=== PATIENT | female | born 1950 | race Caucasian/White ===

== ENCOUNTER 2016-11-13 14:36 | Inpatient (IN) | payer MEDICARE, BC ==
[2016-11-13] MEDS ORDERED: ASPIRIN 81 MG CHEW PO STA (14:55)
[2016-11-13] MEDS ORDERED: NITROGLYCERIN OINT 1 INCH/GM PACKET TOPICAL STA ×2 (14:55→21:23)
--- NOTE | 2016-11-13 15:07 | ED ---
General Adult HPI - General Chief complaint: Recheck/Abnormal Lab/Rx Stated complaint: abn EKG Time Seen by Provider: 11/13/16 14:45 Source: patient, RN notes reviewed Mode of arrival: EMS Limitations: no limitations - History of Present Illness Initial comments: This is a 66-year-old female who has a past medical history significant for hypertension. Patient was having surgery on her nasal septum. Patient had an EKG done after surgery showed some ST segment depression so the anesthesiologist wanted the patient sent to the emergency department. Patient states she's never had any symptoms she denies any chest pain palpitations difficulty breathing or shortness of breath. Patient denies any nausea. Patient denies abdominal pain patient denies any recent fever chills or cough. Patient denies headache patient denies lightheadedness dizziness or near syncopal episode. Patient states he only problem she is having is a little pain secondary to surgery. Patient denies any back pain. - Related Data Allergies Allergy/AdvReac Type Severity Reaction Status Date / Time rofecoxib [From Vioxx] Allergy Unknown Verified 11/13/16 17:35 sumatriptan [From Imitrex] Allergy Unknown Verified 11/13/16 17:35 Review of Systems ROS Statement: Those systems with pertinent positive or pertinent negative responses have been documented in the HPI. ROS Other: All systems not noted in ROS Statement are negative. Past Medical History Past Medical History: Hypertension Additional Past Medical History / Comment(s): migraines History of Any Multi-Drug Resistant Organisms: None Reported Past Surgical History: Hysterectomy Additional Past Surgical History / Comment(s): nasel surg Past Psychological History: No Psychological Hx Reported Smoking Status: Former smoker Past Alcohol Use History: None Reported Past Drug Use History: None Reported General Exam - General Exam Comments Initial Comments: GENERAL: Patient is well-developed and well-nourished. Patient is nontoxic and well- hydrated and is in mild distress. ENT: Neck is soft and supple. No significant lymphadenopathy is noted. Oropharynx is clear. Moist mucous membranes. Neck has full range of motion without eliciting any pain. Patient has a bandage over her nose. EYES: The sclera were anicteric and conjunctiva were pink and moist. Extraocular movements were intact and pupils were equal round and reactive to light. Eyelids were unremarkable. PULMONARY: Unlabored respirations. Good breath sounds bilaterally. No audible rales rhonchi or wheezing was noted. CARDIOVASCULAR: There is a regular rate and rhythm without any murmurs gallops or rubs. ABDOMEN: Soft and nontender with normal bowel sounds. No palpable organomegaly was noted. There is no palpable pulsatile mass. SKIN: Skin is clear with no lesions or rashes and otherwise unremarkable. NEUROLOGIC: Patient is alert and oriented x3. Cranial nerves II through XII are grossly intact. Motor and sensory are also intact. Normal speech, volume and content. Symmetrical smile. MUSCULOSKELETAL: Normal extremities with adequate strength and full range of motion. No lower extremity swelling or edema. No calf tenderness. LYMPHATICS: No significant lymphadenopathy is noted PSYCHIATRIC: Normal psychiatric evaluation. Limitations: no limitations Course Vital Signs 11/13/16 11/13/16 11/13/16 14:50 15:33 17:46 Temperature 97.4 F L Pulse Rate 74 75 72 Respiratory 18 18 18 Rate Blood Pressure 145/72 145/73 141/74 O2 Sat by Pulse 100 100 99 Oximetry Medical Decision Making - Medical Decision Making EKG shows normal sinus rhythm at 70 bpm. It was 164 Jose A is 102 QT interval 444 QTC is 506. Patient's EKG shows T-wave inversions in leads V4 through V6 as well as in lead 1. I compared the EKG that was done at the surgical center patient had ST segment depression in leads V2 through V6 as well as leads 1 and 2 aVL and aVF Patient has significant EKG changes on the post surgery EKG however EKG here was improved but still did show some ST segment depression as well as some T- wave inversions patient remained asymptomatic but because of these concerns I heparinized the patient. Cardiology came down and saw the patient I admitted the patient and wrote orders - Lab Data Result diagrams: 11/13/16 15:28 11/13/16 15:28 Lab Results 11/13/16 11/13/16 11/13/16 Range/Units 15:28 15:28 15:28 WBC 11.5 H (3.8-10.6) k/uL RBC 4.44 (3.80-5.40) m/uL Hgb 13.5 (11.4-16.0) gm/dL Hct 42.9 (34.0-46.0) % MCV 96.6 (80.0-100.0) fL MCH 30.3 (25.0-35.0) pg MCHC 31.3 (31.0-37.0) g/dL RDW 12.8 (11.5-15.5) % Plt Count 278 (150-450) k/uL Neutrophils % 86 % Lymphocytes % 11 % Monocytes % 2 % Eosinophils % 1 % Basophils % 0 % Neutrophils # 9.9 H (1.3-7.7) k/uL Lymphocytes # 1.2 (1.0-4.8) k/uL Monocytes # 0.3 (0-1.0) k/uL Eosinophils # 0.1 (0-0.7) k/uL Basophils # 0.0 (0-0.2) k/uL PT (9.0-12.0) sec INR (<1.1) APTT (22.0-30.0) sec Sodium 140 (137-145) mmol/L Potassium 3.5 (3.5-5.1) mmol/L Chloride 101 (98-107) mmol/L Carbon Dioxide 28 (22-30) mmol/L Anion Gap 11 mmol/L BUN 16 (7-17) mg/dL Creatinine 0.70 (0.52-1.04) mg/dL Est GFR (MDRD) Af Amer >60 (>60 ml/min/1.73 sqM) Est GFR (MDRD) Non-Af >60 (>60 ml/min/1.73 sqM) Glucose 121 H (74-99) mg/dL Calcium 9.4 (8.4-10.2) mg/dL Magnesium 1.7 (1.6-2.3) mg/dL Total Bilirubin 0.5 (0.2-1.3) mg/dL AST 19 (14-36) U/L ALT 33 (9-52) U/L Alkaline Phosphatase 51 (38-126) U/L Total Creatine Kinase 43 (30-135) U/L CK-MB (CK-2) 1.0 (0.0-2.4) ng/mL CK-MB (CK-2) Rel Index 2.3 Troponin I <0.012 (0.000-0.034) ng/mL Total Protein 6.3 (6.3-8.2) g/dL Albumin 4.0 (3.5-5.0) g/dL 11/13/16 Range/Units 15:28 WBC (3.8-10.6) k/uL RBC (3.80-5.40) m/uL Hgb (11.4-16.0) gm/dL Hct (34.0-46.0) % MCV (80.0-100.0) fL MCH (25.0-35.0) pg MCHC (31.0-37.0) g/dL RDW (11.5-15.5) % Plt Count (150-450) k/uL Neutrophils % % Lymphocytes % % Monocytes % % Eosinophils % % Basophils % % Neutrophils # (1.3-7.7) k/uL Lymphocytes # (1.0-4.8) k/uL Monocytes # (0-1.0) k/uL Eosinophils # (0-0.7) k/uL Basophils # (0-0.2) k/uL PT 11.4 (9.0-12.0) sec INR 1.1 (<1.1) APTT 24.6 (22.0-30.0) sec Sodium (137-145) mmol/L Potassium (3.5-5.1) mmol/L Chloride (98-107) mmol/L Carbon Dioxide (22-30) mmol/L Anion Gap mmol/L BUN (7-17) mg/dL Creatinine (0.52-1.04) mg/dL Est GFR (MDRD) Af Amer (>60 ml/min/1.73 sqM) Est GFR (MDRD) Non-Af (>60 ml/min/1.73 sqM) Glucose (74-99) mg/dL Calcium (8.4-10.2) mg/dL Magnesium (1.6-2.3) mg/dL Total Bilirubin (0.2-1.3) mg/dL AST (14-36) U/L ALT (9-52) U/L Alkaline Phosphatase (38-126) U/L Total Creatine Kinase (30-135) U/L CK-MB (CK-2) (0.0-2.4) ng/mL CK-MB (CK-2) Rel Index Troponin I (0.000-0.034) ng/mL Total Protein (6.3-8.2) g/dL Albumin (3.5-5.0) g/dL Critical Care Time Critical Care Time: Yes Total Critical Care Time: 35 Disposition Clinical Impression: Coronary syndrome, acute Disposition: ADMITTED IP TO THIS HOSP Referrals: Shlomo Blanton MD [Primary Care Provider] - 1-2 days Time of Disposition: 18:33
[2016-11-13 15:37] LABS: Basophils % (A) 0 %; CH 31.7; Eosinophils # (A) 0.1 k/uL (0-0.7); Eosinophils % (A) 1 %; HCT 42.9 % (34.0-46.0); HDW 2.32; HGB 13.5 gm/dL (11.4-16.0); Luc # (Auto) 0.05; Luc % (Auto) 0; Lymphocytes # (A) 1.2 k/uL (1.0-4.8); Lymphocytes % (A) 11 %; MCH 30.3 pg (25.0-35.0); MCHC 31.3 g/dL (31.0-37.0); MCV 96.6 fL (80.0-100.0); Mean Platelet Volume 7.2; Monocytes # (A) 0.3 k/uL (0-1.0); Monocytes % (A) 2 %; Neutrophils # (A) 9.9 k/uL (1.3-7.7); Neutrophils % (A) 86 %; RBC 4.44 m/uL (3.80-5.40); RDW 12.8 % (11.5-15.5); WBC 11.5 k/uL (3.8-10.6); WBC (Perox) 12.01
[2016-11-13 15:44] LABS: INR 1.1 (<1.1); Partial Thromboplastin Time 24.6 sec (22.0-30.0); Prothrombin Time 11.4 sec (9.0-12.0)
[2016-11-13 15:51] LABS: ALT 33 U/L (9-52); AST 19 U/L (14-36); Alkaline Phosphatase 51 U/L (38-126); Anion Gap 11 mmol/L; Blood Urea Nitrogen 16 mg/dL (7-17); Calcium 9.4 mg/dL (8.4-10.2); Carbon Dioxide 28 mmol/L (22-30); Chloride 101 mmol/L (98-107); Creatine Kinase 43 U/L (30-135); Glucose 121 mg/dL (74-99); Magnesium 1.7 mg/dL (1.6-2.3); Non-African American GFR(MDRD) >60 (>60 ml/min/1.73 sqM); Potassium 3.5 mmol/L (3.5-5.1); Sodium 140 mmol/L (137-145); Total Bilirubin 0.5 mg/dL (0.2-1.3); Total Protein 6.3 g/dL (6.3-8.2)
[2016-11-13 16:04] LABS: Troponin I <0.012 ng/mL (0.000-0.034)
--- NOTE | 2016-11-13 16:14 | P.CRDCN ---
History of Present Illness Consult date: 11/13/16 History of present illness: This is a 66-year-old female with history of hypertension and also smoking who had surgery for nasal septum. During the procedure patient was noted to have ST depressions in the inferolateral leads. Patient was sent to the emergency room for further evaluation. An EKG repeated in the emergency room showed less pronounced ST-T abnormalities with some T-wave changes in anterolateral leads. Patient is free of any chest pains or shortness of breath. She has some discomfort but surgery. She has no history of previous myocardial infarction or stroke. Patient gives history of having mitral valve prolapse but hasn't had any cardiac follow-up. At the time of my examination patient appears to be stable. Patient is going to be observed for the next 24 hours. We will get cardiac enzymes studies, repeat EKG and echo cardiogram tomorrow. He patient remains stable with negative enzymes, patient could be discharged home to have outpatient follow-up and workup. Review of Systems REVIEW OF SYSTEMS: CONSTITUTIONAL:. He is alert and oriented. Patient has nasal packing EYES: Denies diplopia, blurring of vision EARS, NOSE, MOUTH, THROAT: Nose is packed CARDIOVASCULAR: Denies chest pain, denies shortness of breath, denies palpitations RESPIRATORY: Denies shortness of breath, denies cough. GASTROINTESTINAL: Denies change in appetite, denies abdominal pain, denies diarrhea GENITOURINARY: Denies hematuria, denies infections. MUSKULOSKELETAL: Denies pain, denies swelling. Denies any cramps or claudication INTEGUMENTARY: Denies rash, denies eczema. NEUROLOGICAL: Denies focal weakness, or visual disturbance. Denies any dizziness or syncope PSYCHIATRIC: Denies anxiety, denies depression. HEMATOLOGIC/LYMPHATIC: Denies any bleeding, denies enlarged lymph nodes. Past Medical History Past Medical History: Hypertension Additional Past Medical History / Comment(s): migraines History of Any Multi-Drug Resistant Organisms: None Reported Past Surgical History: Hysterectomy Additional Past Surgical History / Comment(s): nasel surg Past Psychological History: No Psychological Hx Reported Smoking Status: Former smoker Past Alcohol Use History: None Reported Past Drug Use History: None Reported Physical Exam Vitals: Vital Signs Temp Pulse Resp BP Pulse Ox 11/13/16 15:33 75 18 145/73 100 11/13/16 14:50 97.4 F L 74 18 145/72 100 Intake and Output 11/13/16 11/13/16 11/13/16 06:59 14:59 22:59 Other: Weight 64.41 kg Patient Weight 11/14/16 06:59 Weight 64.41 kg GENERAL EXAM: Patient is alert and oriented and doesn't appear to be in any acute distress HEENT: Patient has nasal packing from the recent surgery CHEST: No chest wall deformity. LUNGS: Equal air entry with no crackles or wheeze. HEART: S1 and S2 normal with no audible mumurs or gallops. Regular rhythm, femorals equal on both sides.. ABDOMEN: No hepatosplenomegaly, normal bowel sounds, no guarding or rigidity. SKIN: No rashes CENTRAL NERVOUS SYSTEM: No focal deficits. EXTREMITIES: No cyanosis, clubbing or edema. Results 11/13/16 15:28 11/13/16 15:28 Cardiac Enzymes 11/13/16 11/13/16 Range/Units 15:28 15:28 AST 19 (14-36) U/L CK-MB (CK-2) 1.0 (0.0-2.4) ng/mL Troponin I <0.012 (0.000-0.034) ng/mL Coagulation 11/13/16 Range/Units 15:28 PT 11.4 (9.0-12.0) sec APTT 24.6 (22.0-30.0) sec CBC 11/13/16 Range/Units 15:28 WBC 11.5 H (3.8-10.6) k/uL RBC 4.44 (3.80-5.40) m/uL Hgb 13.5 (11.4-16.0) gm/dL Hct 42.9 (34.0-46.0) % Plt Count 278 (150-450) k/uL Comprehensive Metabolic Panel 11/13/16 Range/Units 15:28 Sodium 140 (137-145) mmol/L Potassium 3.5 (3.5-5.1) mmol/L Chloride 101 (98-107) mmol/L Carbon Dioxide 28 (22-30) mmol/L BUN 16 (7-17) mg/dL Creatinine 0.70 (0.52-1.04) mg/dL Glucose 121 H (74-99) mg/dL Calcium 9.4 (8.4-10.2) mg/dL AST 19 (14-36) U/L ALT 33 (9-52) U/L Alkaline Phosphatase 51 (38-126) U/L Total Protein 6.3 (6.3-8.2) g/dL Albumin 4.0 (3.5-5.0) g/dL Intake and Output 11/13/16 11/13/16 11/13/16 06:59 14:59 22:59 Other: Weight 64.41 kg Patient Weight 11/14/16 06:59 Weight 64.41 kg 11/13/16 15:28 11/13/16 15:28 EKG Interpretations (text) Sinus rhythm with a mild ST-T abnormalities in the inferolateral leads. Could be chronic Assessment and Plan (1) Abnormal EKG Status: Acute (2) Hypertension Status: Acute (3) History of mitral valve prolapse Status: Acute (4) Family history of ischemic heart disease Status: Acute (5) Smoking Status: Acute Plan: We'll continue to monitor her for any further EKG changes. Card enzymes studies will followed. An echocardiogram will be done tomorrow. If patient remains stable and enzymes and echo findings are normal, patient could be discharged home to have further workup as an outpatient.
[2016-11-13] MEDS: ONDANSETRON 4 MG/2 ML VIAL IVP STA (17:33)
[2016-11-13] MEDS ORDERED: HYDROmorphone 1 MG/ML 1 ML SYRINGE IVP STA ×2 (17:33→18:34)
[2016-11-13] MEDS ORDERED: NITROGLYCERIN SL TABS 0.4 MG TAB SUBLINGUAL PRN (18:36)
--- NOTE | 2016-11-13 18:56 | XR ---
EXAMINATION TYPE: XR chest 1V portable DATE OF EXAM: 11/13/2016 6:31 PM COMPARISON: EXAMINATION TYPE: XR chest 1V portable DATE OF EXAM: 11/13/2016 6:31 PM COMPARISON: NONE HISTORY: Chest pain and short of breath TECHNIQUE: Single frontal view of the chest is obtained. FINDINGS: There is no heart failure nor confluent pneumonic infiltrate. There are no hilar masses. C ostophrenic angles are clear. There are chest leads. IMPRESSION: No active cardiopulmonary disease.
[2016-11-13] MEDS: HYDROmorphone 1 MG/ML 1 ML SYRINGE IVP PRN ×2 (20:12→23:42)
[2016-11-13] MEDS ORDERED: amLODIPine 10 MG TAB PO STA (21:25)
[2016-11-13] MEDS ORDERED: ZOLPIDEM 5 MG TAB PO PRN (21:30)
[2016-11-13] MEDS: HYDROcodone/APAP 10-325MG 1 EACH TAB PO PRN (21:52)
[2016-11-13] MEDS: ALPRAZolam 0.5 MG TAB PO PRN (21:56)
[2016-11-13 22:02] LABS: Creatine Kinase MB 1.1 ng/mL (0.0-2.4); Troponin I 0.023 ng/mL (0.000-0.034)
[2016-11-13] MEDS: ESCITALOPRAM 20 MG TAB PO SCH (23:42)
[2016-11-13] MEDS: ATORVASTATIN 10 MG TAB PO SCH (23:49)
[2016-11-13] MEDS: MONTELUKAST 10 MG TAB PO SCH (23:49)
[2016-11-14] VITALS: BMI 25.1
[2016-11-14] MEDS: METOPROLOL TARTRATE 50 MG TAB PO SCH ×2 (03:47→09:26)
[2016-11-14] MEDS: HYDROCHLOROTHIAZIDE 25 MG TAB PO SCH ×2 (03:47→09:26)
[2016-11-14] MEDS: LISINOPRIL 20 MG TAB PO SCH ×2 (03:47→09:26)
[2016-11-14] MEDS: NITROGLYCERIN OINT 1 INCH/GM PACKET TOPICAL SCH (04:03)
[2016-11-14 04:05] LABS: Cholesterol 163 mg/dL (<200); HDL Cholesterol 85 mg/dL (40-60); Triglycerides 59 mg/dL (<150)
[2016-11-14 04:41] LABS: Creatine Kinase MB 0.8 ng/mL (0.0-2.4)
[2016-11-14 04:46] LABS: Troponin I 0.04 ng/mL (0.000-0.034)
[2016-11-14] MEDS: ONDANSETRON 4 MG/2 ML VIAL IVP STA (04:53)
[2016-11-14] MEDS: HYDROmorphone 1 MG/ML 1 ML SYRINGE IVP PRN ×2 (04:54→14:23)
--- NOTE | 2016-11-14 06:59 | P.GSCN ---
History of Present Illness Consult date: 11/14/16 Reason for Consult: Re-evaluation surgically Requesting physician: Dillon Magdaleno History of present illness: This is a very pleasant 66-year-old white female who underwent sinonasal surgery yesterday at the [facility]. Surgery went exceptionally well but during surgery she was hypertensive and was treated appropriately. In recovery her blood pressure went up to 180 systolic and an EKG was performed showing some inferior lead ST segment depression. It was felt that she be transferred and evaluated for a possible cardiac event. She had no chest pain or other cardiac symptoms. Her blood pressure has been a challenge as of yesterday afternoon and with her elevated hypertension she had some bleeding from her nose. I did: Nitroglycerin patch and that dropped her blood pressure quite nicely and as soon as her systolic dropped under 150 her bleeding stopped. The goal for her blood pressure is to be under 150/90. She stable this morning tells me she is doing well and has no cardiac symptoms. Her drainage from her nose has ceased. Review of Systems - Constitutional Reports as per HPI - EENT Ears, nose, mouth and throat: Reports as per HPI - Cardiovascular Reports as per HPI - Gastrointestinal Reports as per HPI - Genitourinary Genitourinary: Reports as per HPI Menstruation: Reports as per HPI - Musculoskeletal Reports as per HPI - Integumentary Reports as per HPI Past Medical History Past Medical History: Hypertension, Mitral Valve Prolapse (MVP) Additional Past Medical History / Comment(s): migraines - not for many years History of Any Multi-Drug Resistant Organisms: None Reported Past Surgical History: Hysterectomy, Tonsillectomy Additional Past Surgical History / Comment(s): nasal surg, rt oophrectomy, rt thumb/wrist surg Past Psychological History: No Psychological Hx Reported Smoking Status: Former smoker Past Alcohol Use History: None Reported Past Drug Use History: None Reported Medications and Allergies Home Medications Medication Instructions Recorded Confirmed Type ALPRAZolam [Xanax] 0.5 mg PO TID PRN 11/13/16 11/13/16 History Albuterol Sulfate [Proair Hfa] 2 puff INHALATION RT-Q4H PRN 11/13/16 11/13/16 History Escitalopram Oxalate [Lexapro] 20 mg PO DAILY 11/13/16 11/13/16 History Fosinopril Sodium [Monopril] 20 mg PO BID 11/13/16 11/13/16 History HYDROcodone/APAP 10-325MG [[place] 1 tab PO Q4HR PRN 11/13/16 11/13/16 History 10-325] Hydrochlorothiazide [Hydrodiuril] 25 mg PO BID 11/13/16 11/13/16 History Metoprolol Tartrate [Lopressor] 50 mg PO BID 11/13/16 11/13/16 History Montelukast Sodium [Singulair] 10 mg PO HS 11/13/16 11/13/16 History Simvastatin [Zocor] 20 mg PO HS 11/13/16 11/13/16 History Zolpidem Tartrate [Ambien Cr] 12.5 mg PO HS PRN 11/13/16 11/13/16 History Allergies Allergy/AdvReac Type Severity Reaction Status Date / Time adhesive tape Allergy Rash/Hives Verified 11/13/16 19:05 rofecoxib [From Vioxx] Allergy Swelling Verified 11/13/16 19:00 sumatriptan [From Imitrex] AdvReac Made Verified 11/13/16 19:00 Migraine Worse Surgical - Exam Osteopathic Statement: *. No significant issues noted on an osteopathic structural exam other than those noted in the History and Physical/Consult. Vital Signs Temp Pulse Resp BP Pulse Ox 97.4 F L 74 18 145/72 100 11/13/16 14:50 11/13/16 14:50 11/13/16 14:50 11/13/16 14:50 11/13/16 14:50 - General well developed, well nourished, no distress, moderate distress - Eyes PERRL, normal ocular movement - ENT Hasn't was felt the face is symmetric. Ears are well-formed canals are clear. Nose shows intranasal splints in place with a drip pad in place no bleeding is noted. Mouth and throat no bleeding is noted no oral lesions are seen. Neck trachea midline thyroid is not enlarged. normal pinna, normal nares - Neck no masses - Respiratory normal expansion - Integumentary no rash, no growths - Neurologic normal coordination, normal sensation - Psychiatric oriented to time, oriented to person, oriented to place, speech is normal, memory intact Results - Labs 11/13/16 15:28 11/13/16 15:28 Abnormal Lab Results - Last 24 Hours (Table) 11/14/16 11/14/16 Range/Units 03:26 03:26 Troponin I 0.040 H* (0.000-0.034) ng/mL HDL Cholesterol 85 H (40-60) mg/dL Diabetes panel 11/14/16 Range/Units 03:26 Triglycerides 59 (<150) mg/dL HDL Cholesterol 85 H (40-60) mg/dL Assessment and Plan Plan: The goal for this patient's blood pressure to prevent postoperative bleeding is to be under 150/90. Currently she has an excellent blood pressure. Awaiting cardiac clearance to see if she can be sent home. Postoperative instructions have been given to the patient. She did relate irrigation to her nose to keep her nose open. I've given her [place] for pain. I will prescribe Percocets in case the pain is greater than expected. Patient has a blood pressure monitor and she is to monitor her blood pressure closely. Again her goal is to be under 150/90. After discharge on outpatient basis she should see her family physician for a reevaluation. Patient is to call me if any problems should arise in the interim. Time with Patient: Greater than 30
[2016-11-14] MEDS: ASPIRIN 325 MG TAB PO SCH ×2 (09:26→09:27)
[2016-11-14] MEDS: ESCITALOPRAM 20 MG TAB PO SCH (09:26)
[2016-11-14] MEDS: HYDROcodone/APAP 10-325MG 1 EACH TAB PO PRN ×3 (09:32→19:50)
[2016-11-14] MEDS: ISOSORBIDE MONONITRATE ER 30 MG TAB.ER.24H PO SCH (10:45)
--- NOTE | 2016-11-14 15:04 | ECHOF ---
Referral Reason:Chest pain and cardiomyopathy MEASUREMENTS -------- HEIGHT: 160.0 cm WEIGHT: 64.0 kg BP: 97/47 RVIDd: 2.9 cm (< 3.3) IVSd: 1.2 cm (0.6 - 1.1) LVIDd: 3.7 cm (3.9 - 5.3) LVPWd: 1.2 cm (0.6 - 1.1) IVSs: 1.5 cm LVIDs: 2.4 cm LVPWs: 1.5 cm LA Diam: 3.5 cm (2.7 - 3.8) LAESV Index (A-L): 32.55 ml/m Ao Diam: 2.9 cm (2.0 - 3.7) AV Cusp: 1.8 cm (1.5 - 2.6) MV EXCURSION: 10.716 mm (> 18.000) MV EF SLOPE: 59 mm/s (70 - 150) EPSS: 0.2 cm MV E Sohail: 0.81 m/s MV DecT: 242 ms MV A Sohail: 0.85 m/s MV E/A Ratio: 0.96 FINDINGS -------- Sinus rhythm. This was a technically adequate study. The left ventricular size is normal. There is borderline concentric left ventricular hypertrophy. Overall left ventricular systolic function is normal with, an EF between 55 - 60 %. The right ventricle is normal in size and function. LA is midly dilated 29-33ml/m2. The right atrium is normal in size. The aortic valve is trileaflet and appears structurally normal. Mild mitral annular calcification present. The tricuspid valve appears structurally normal. No regurgitation noted The pulmonic valve was not well visualized. The aortic root size is normal. Normal inferior vena cava with normal inspiratory collapse consistent with estimated right atrial pressure of 5 mmHg. There is no pericardial effusion. CONCLUSIONS -------- 1. Sinus rhythm. 2. The aortic root size is normal. 3. Normal inferior vena cava with normal inspiratory collapse consistent with estimated right atrial pressure of 5 mmHg. 4. There is no pericardial effusion. 5. This was a technically adequate study. 6. There is borderline concentric left ventricular hypertrophy. 7. Overall left ventricular systolic function is normal with, an EF between 55 - 60 %. 8. LA is midly dilated 29-33ml/m2. 9. The aortic valve is trileaflet and appears structurally normal. 10. Mild mitral annular calcification present. 11. No regurgitation noted 12. The pulmonic valve was not well visualized. APPLIANCE COUNSELOR: Barb Van RDCS
--- NOTE | 2016-11-14 16:37 | PN ---
Mrs. Wheeler is a 66-year-old female with a history of hypertension, who underwent surgery for nasal septum and was found to have ST segment depression, was referred to the emergency room and subsequently admitted. She is feeling well this morning. She has no chest pain. Her breathing has been stable. She denies any dizziness, palpitation. She denies any nausea. She has the nasal packing as noted. She continues to be at this time on aspirin once a day, Lipitor 20 mg daily, lisinopril 20 mg twice a day, metoprolol tartrate 50 mg twice a day, Singulair, nitro paste. Of note, the patient has a history of hypertension and hyperlipidemia as an outpatient. PHYSICAL EXAMINATION: Blood pressure running in the 120s with a heart in the 70s. HEAD: Normocephalic, packing in place. LUNGS: Clear to auscultation. HEART: Regular rate rhythm. S1, S2, no S3, no rub. ABDOMEN: Soft, nontender. EXTREMITIES: No edema. Lab data revealed cholesterol 163, LDL of 66, troponin 0.04, BUN and creatinine 16 and 0.7. Hemoglobin of 13.5. Her EKG today revealed a sinus mechanism, normal axis and intervals with no acute changes. She had mild ST segment depression yesterday that resolved. IMPRESSION: 1. Probable non- ST segment elevation myocardial infarction with mild EKG changes that resolved. 2. Status post nasal sinus surgery done yesterday. 3. Hypertension. 4. Hyperlipidemia. RECOMMENDATIONS: From the cardiac standpoint, I will review her echocardiogram. Patient will need to be admitted to the hospital. Will obtain a subsequent troponin to see the trend. I would favor not proceeding with emergent cardiac catheterization. Because of the recent surgery and the possibility that may have some worsening bleeding but if she has any further symptoms or further elevation of the troponin then that needs to be done. I have discussed with her those findings.
[2016-11-14] MEDS: ATORVASTATIN 10 MG TAB PO SCH (19:50)
[2016-11-14] MEDS: MONTELUKAST 10 MG TAB PO SCH (19:50)
[2016-11-14] MEDS: ALPRAZolam 0.5 MG TAB PO PRN (19:50)
[2016-11-15] MEDS: HYDROcodone/APAP 10-325MG 1 EACH TAB PO PRN ×4 (03:51→20:44)
[2016-11-15] MEDS: HYDROCHLOROTHIAZIDE 25 MG TAB PO SCH ×2 (04:49→08:08)
[2016-11-15] MEDS: METOPROLOL TARTRATE 50 MG TAB PO SCH ×3 (04:49→20:44)
[2016-11-15] MEDS: LISINOPRIL 20 MG TAB PO SCH ×3 (04:49→20:44)
[2016-11-15 07:06] LABS: Anion Gap 5 mmol/L; Blood Urea Nitrogen 22 mg/dL (7-17); Calcium 9.2 mg/dL (8.4-10.2); Carbon Dioxide 32 mmol/L (22-30); Chloride 101 mmol/L (98-107); Glucose 106 mg/dL (74-99); Non-African American GFR(MDRD) >60 (>60 ml/min/1.73 sqM); Potassium 4.4 mmol/L (3.5-5.1); Sodium 138 mmol/L (137-145)
[2016-11-15] MEDS: ISOSORBIDE MONONITRATE ER 30 MG TAB.ER.24H PO SCH (08:06)
[2016-11-15] MEDS: ASPIRIN 325 MG TAB PO SCH (08:06)
[2016-11-15] MEDS: ESCITALOPRAM 20 MG TAB PO SCH (08:08)
[2016-11-15] MEDS: HYDROmorphone 1 MG/ML 1 ML SYRINGE IVP PRN (09:19)
[2016-11-15] MEDS ORDERED: SODIUM CHLORIDE 0.9% 500 ML IV ONE (11:39)
--- NOTE | 2016-11-15 13:11 | HP ---
DATE OF ADMISSION: 11/14/2016 CHIEF COMPLAINT: Uncontrolled hypertension. EKG changes. HISTORY OF PRESENT ILLNESS: Ms. Wheeler is a 66-year-old female with a known history of hypertension, mitral valve prolapse who underwent sinonasal surgery for polypectomy at [facility] on 11/13/2016. Postoperatively patient was having uncontrolled hypertension and EKG changes with ST segment depression. The patient subsequently transferred to [facility] for further evaluation by cardiology and otherwise, the patient was having nose bleeding for which nose packing was done. Patient is being followed by cardiology and ENT at this time. Patient was given nitroglycerin patch and improvement of blood pressure. Patient also found to have a slightly elevated troponin level, possible NSTEMI currently being monitored for possible intervention if needed as per cardiology and following serial troponins levels. Otherwise, patient denied any complaints of headache, dizziness or lightheadedness. No chest pain. No short of breath. No nausea or vomiting. No fever. The patient complains of recently having epigastric symptoms at home about two weeks ago. Otherwise denied any recent illnesses. REVIEW OF SYSTEMS: CONSTITUTIONAL: No fever. No chills. RESPIRATORY: No cough or sputum production. CARDIOVASCULAR: No chest pain or short of breath. ABDOMEN: No nausea, vomiting, or abdominal pain. GENITOURINARY: Negative. ENDOCRINE: Negative. PSYCH: Negative. SKIN: Negative. All other fourteen-point review of systems negative except as above. PAST MEDICAL HISTORY: Hypertension, mitral valve prolapse. History of migraine headaches. PAST SURGICAL HISTORY: Hysterectomy, tonsillectomy, nasal surgery, right nephrectomy and right ( ) wrist surgery. SOCIAL HISTORY: The patient is a former smoker. FAMILY HISTORY: Denied any history of hypertension or diabetes mellitus in the family. Home medication include: 1. Xanax. 2. Pro-Air. 3. Lexapro. 4. Monopril. 5. [place] 10. 6. Hydrodiuril. 7. Lopressor. 8. Singulair. 9. Zocor. 10. Ambien. ALLERGIES: ADHESIVE TAPE, ( ) SUMITRIPTAN. PHYSICAL EXAMINATION: She is a 66 -year-old female lying in bed. Awake, alert, oriented, x3. The patient has nose pack in place, no active bleeding. VITALS: Blood pressure is 176/78 on admission, pulse is 68, respiration 18, temperature afebrile, pulse 97% on room air. HEENT: Atraumatic. The patient has nose pack present status post surgery, atraumatic, Neck is supple. No JVD. CVS: S1, S2 heard. No murmurs, no gallop, no rub. LUNGS: Bilateral air entry is present. No wheezing. No crackles. Nonlabored breathing. ABDOMEN: Soft, nontender. Bowel sounds present. BOAT GARNISHER: Awake, alert and oriented times three. No focal neurologic deficits. Cranial nerves grossly intact. EXTREMITIES: No edema. Pulses palpable bilaterally. No clubbing or cyanosis. PSYCHIATRIC: Cooperative. Nonsuicidal. SKIN: No rash or skin lesions. LABORATORY DATA: WBC 11.4, hemoglobin 13.5, platelets 274. INR 1.1. Sodium 140, potassium 3.5, chloride 101, bicarb is 28. BUN 16, creatinine 0.7. Troponin 0.012, 0.023 and 0.040. Chest x-ray shows no acute cardiopulmonary process. EKG shows normal sinus rhythm. ST-T wave abnormalities. IMPRESSION: 1. Elevated troponin, possible non-ST elevation myocardial infarction. 2. Uncontrolled hypertension, controlled now. 3. Hypertension. 4. Hyperlipidemia. 5. Mitral prolapse history. 6. History of migraine headache. 7. Status post nasal and sinus polypectomy done on 11/13/2016. DISCUSSION AND PLAN: 66 -year-old female with history of nasal sinus surgery yesterday was admitted to the hospital with EKG changes and elevated troponin level. Continue the serial troponins and cardiology is planning for catheterization ( ) troponin is trending up. Otherwise, the patient is chest pain free now. Continue with telemonitoring. Continue the current management. Follow-up closely. Further recommendations based on clinical course.
--- NOTE | 2016-11-15 14:17 | PN ---
Mrs. Wheeler is a 66-year-old female who presented to undergo nasal surgery. Had some EKG changes postoperatively. She is doing well at this time. She denies symptoms of chest pain. She denies any change in her breathing. She has the packing on her nose. She has no dizziness, palpitation. She continued to be on aspirin once a day, Lipitor 20 mg daily, isosorbide mononitrate 30 mg daily and Zestril 20 mg twice a day, metoprolol tartrate 50 mg twice a day. PHYSICAL EXAMINATION: Blood pressure running in the one teens to 150s with a heart in the 70s. LUNGS: Clear. HEART: Regular rate and rhythm. S1, S2, no S3, no rub. ABDOMEN: Soft, nontender. EXTREMITIES: No edema. Echocardiogram revealed a preserved left ventricular size and systolic function. Her lab data revealed a troponin of 0.03, 0.026 and 0.02. Her cholesterol is 163, LDL of 56. Her BUN and creatinine 22 and 0.8. IMPRESSION: 1. Episode of ST segment changes transient with minimal change in her troponin, resolved. Subsequent troponins are normal. Her left ventricular systolic function is normal. 2. History of hypertension. 3. Status post recent nasal sinus surgery. RECOMMENDATIONS: From the cardiac standpoint, she should be able to be discharged home today. Follow up as an outpatient with Dr. Magdaleno on her present medical regimen and depending on her progress, further recommendation will be made.
[2016-11-15] MEDS: SODIUM CHLORIDE 0.9% 1,000 ML IV SCH (14:35)
[2016-11-15] MEDS: ATORVASTATIN 10 MG TAB PO SCH (20:44)
[2016-11-15] MEDS: MONTELUKAST 10 MG TAB PO SCH (20:44)
[2016-11-15] MEDS ORDERED: RX INFO: IV CONTRAST WAS GIVEN 1 EACH MISC MISCELLANE PRN (21:40)
--- NOTE | 2016-11-15 22:29 | CT ---
EXAMINATION TYPE: CT angio head DATE OF EXAM: 11/15/2016 10:10 PM COMPARISON: NONE HISTORY: pt is 2 days post sinus surgery, c/o VILLA since surgery, R/O aneurysm CT DLP: 1319.50 mGycm Automated exposure control for dose reduction was used. TECHNIQUE: Performed with IV Contrast, patient injected with 100 mL of Visipaque 320. MIP images are created and reviewed. 3D reconstructed images are created on an independent workstati on and reviewed. FINDINGS: The noncontrast images show some cerebral cortical atrophy. There is no midline shift. There is no si gn of intracranial hemorrhage. There is arterial flow demonstrated in the anterior middle and posterior cerebral arteries. There is no mass effect. There is no evidence of aneurysm or neovascularity. There is normal contrast opacific ation of the venous sinuses. There is arterial flow in the vertebral basilar artery system. There is bilateral flow in the vertebral arteries. There is flow in both internal carotid arteries. There is extensive mucosal thickening in the paranasal sinuses. There are drains in the nasopharynx. Orbital margins are intact. IMPRESSION: NEGATIVE CT ANGIOGRAM OF THE BRAIN. SINUS MUCOSAL THICKENING WITH RECENT SURGERY.
[2016-11-16] MEDS: HYDROcodone/APAP 10-325MG 1 EACH TAB PO PRN ×4 (04:11→22:45)
[2016-11-16] MEDS: HYDROCHLOROTHIAZIDE 25 MG TAB PO SCH ×2 (04:15→08:33)
[2016-11-16] MEDS: SODIUM CHLORIDE 0.9% 1,000 ML IV SCH (04:38)
[2016-11-16] MEDS: NITROGLYCERIN OINT 1 INCH/GM PACKET TOPICAL SCH (05:58)
[2016-11-16] MEDS: ASPIRIN 325 MG TAB PO SCH (08:32)
[2016-11-16] MEDS: METOPROLOL TARTRATE 50 MG TAB PO SCH ×2 (08:33→22:42)
[2016-11-16] MEDS: ESCITALOPRAM 20 MG TAB PO SCH (08:33)
[2016-11-16] MEDS: LISINOPRIL 20 MG TAB PO SCH ×2 (08:33→22:42)
--- NOTE | 2016-11-16 08:52 | PN ---
HISTORY: This is a patient of Dr. Willie mendoza who had sinus surgery on Wednesday and had uncontrolled hypertension and some cardiac EKG changes and therefore was transferred to [facility] for cardiac work-up. She has had intermittent elevated hypertension and is still trying to have this controlled. Apparently myocardial infarction was ruled out according to her nurse. The sister called me this evening having concern about the patient having some headaches and facial pain which she realizes is not uncommon after sinus surgery with a nasal packing and splints. However, there is a strong family history of aneurysms including herself, their mother and another sister who actually had from an aneurysm. She wanted to see if brain scan could be ordered to rule out aneurysm. I spoke with her nurse regarding the patient and that she had one dose of Dilaudid this morning and one dose [place] tonight, which has controlled her headaches and facial pain for the most part. She does complain about some pressure around her eyes. She is having no nasal drainage or fever and her headache is generalized when she is having this. Her nurse explained that she is good from a cardiac standpoint, although they are still try to control her hypertension before discharging her. I did order MRI/MRA to rule out aneurysm due to the family history, although her headache and facial pain is most likely postoperative and is not uncommon after this type of surgery. With the strong family history this is reasonable to have aneurysm ruled out anyway. This will be ordered and I did order this through her nurse, Amberly and if this is clear then she would be able to be discharged when recommended by Cardiology. Note, that I was not aware of this patient until this evening when her sister called me about her. There is no operative note available though I did review her office chart.
[2016-11-16] MEDS: ISOSORBIDE MONONITRATE ER 30 MG TAB.ER.24H PO SCH (09:49)
[2016-11-16] MEDS: amLODIPine 5 MG TAB PO SCH (09:59)
--- NOTE | 2016-11-16 18:39 | PN ---
Mrs. Wheeler is a 66-year-old female who underwent nasal sinus surgery, had mild EKG changes postoperatively that resolved. She is doing well this morning. Her main complaint is headache. She had a head CT yesterday that revealed no evidence of any acute changes with no evidence of aneurysm. She is feeling slightly better. She continues to have the headache. She has no chest pain. Her breathing has been stable. No dizziness. No palpitations. She denies any nausea. She continues to be on lisinopril 20 mg daily, hydrochlorothiazide 25 mg twice a day, isosorbide mononitrate 30 mg daily, Zestril 20 mg twice a day, metoprolol tartrate 50 mg twice a day. PHYSICAL EXAMINATION: Blood pressure remains elevated times up to the 160s and 170s with a heart in the 70s. LUNGS: Clear. HEART: Regular rate and rhythm. S1, S2, no S3, no rub. ABDOMEN: Soft, nontender. EXTREMITIES: No edema. Lab data revealed BUN and creatinine 22 and 2.8. IMPRESSION: 1. Status post nasal sinus surgery. 2. Headache, improving. 3. Mild electrocardiogram changes resolved, etiology unclear. 4. History of hypertension. RECOMMENDATIONS: I will add to regimen amlodipine 5 mg daily to optimize her blood pressure control, otherwise continue the rest of medical regimen. From the cardiac standpoint. She is stable to be discharged home to be followed as an outpatient by Dr. Magdaleno to see if further cardiac work-up will be needed.
[2016-11-16] MEDS: HYDROmorphone 1 MG/ML 1 ML SYRINGE IVP PRN (18:40)
[2016-11-16 20:03] VITALS: RESP 16
[2016-11-16] MEDS: ATORVASTATIN 10 MG TAB PO SCH (22:43)
[2016-11-16] MEDS: MONTELUKAST 10 MG TAB PO SCH (22:43)
[2016-11-17] MEDS: HYDROCHLOROTHIAZIDE 25 MG TAB PO SCH ×2 (03:38→08:34)
[2016-11-17] MEDS: HYDROcodone/APAP 10-325MG 1 EACH TAB PO PRN ×3 (04:46→13:19)
[2016-11-17 07:57] VITALS: PULSE 61
[2016-11-17 08:19] LABS: Anion Gap 8 mmol/L; Blood Urea Nitrogen 13 mg/dL (7-17); Calcium 9.2 mg/dL (8.4-10.2); Carbon Dioxide 31 mmol/L (22-30); Chloride 100 mmol/L (98-107); Glucose 101 mg/dL (74-99); Non-African American GFR(MDRD) >60 (>60 ml/min/1.73 sqM); Potassium 3.8 mmol/L (3.5-5.1); Sodium 139 mmol/L (137-145)
[2016-11-17] MEDS: amLODIPine 5 MG TAB PO SCH (08:33)
[2016-11-17] MEDS: ESCITALOPRAM 20 MG TAB PO SCH (08:33)
[2016-11-17] MEDS: ASPIRIN 325 MG TAB PO SCH (08:33)
[2016-11-17 09:12] LABS: Basophils % (A) 0 %; CH 30.7; CHCM 31.9; Eosinophils # (A) 0.5 k/uL (0-0.7); Eosinophils % (A) 5 %; HCT 35.6 % (34.0-46.0); HDW 2.09; HGB 11.7 gm/dL (11.4-16.0); Luc # (Auto) 0.24; Luc % (Auto) 2; Lymphocytes % (A) 30 %; MCH 31.8 pg (25.0-35.0); MCHC 32.9 g/dL (31.0-37.0); MCV 96.7 fL (80.0-100.0); Mean Platelet Volume 6.4; Monocytes # (A) 0.9 k/uL (0-1.0); Monocytes % (A) 9 %; Neutrophils # (A) 5.4 k/uL (1.3-7.7); Neutrophils % (A) 54 %; RBC 3.68 m/uL (3.80-5.40); RDW 12.2 % (11.5-15.5); WBC (Perox) 10.86
--- NOTE | 2016-11-17 10:33 | P.PN ---
Subjective Principal diagnosis: Abnormal EKG and positive troponins This patient had a outpatient nasal surgery and she was noted to have abnormal EKGs at the end of the procedure. She was sent to the emergency room. She also had borderline troponin elevation. Patient did not have any symptoms of chest pain. Echocardiogram showed good LV function. Patient remained stable since admission here from Cardec standpoint. Patient did have some oozing from the surgery of the nose. It was felt that patient is not a candidate for intervention at this time because of ongoing bleeding from the surgical site. As patient is clinically stable she is being discharged home on medical therapy. Patient will be evaluated for coronary artery disease as an outpatient. Follow-up with Dr. Magdaleno in 1 week. Objective - Vital Signs Vital signs: Vital Signs Temp 97.9 F 11/17/16 07:56 Pulse 61 11/17/16 08:00 Resp 16 11/17/16 08:00 BP 124/63 11/17/16 07:56 Pulse Ox 96 11/17/16 07:56 Intake & Output 11/16/16 11/17/16 11/17/16 18:59 06:59 18:59 Intake Total 518 450 Balance 518 450 Intake: Oral 518 450 Other: Voiding Method Toilet Toilet Toilet # Voids 1 - Exam GENERAL EXAM: Patient is alert and oriented and doesn't appear to be in any acute distress HEENT: Normocephalic. Normal reaction of pupils, equal size, normal range of extraocular motion. No erythema or exudates in the throat. NECK: No masses, no nuchal rigidity. CHEST: No chest wall deformity. LUNGS: Equal air entry with no crackles or wheeze. HEART: S1 and S2 normal with no audible mumurs or gallops. Regular rhythm, femorals equal on both sides.. ABDOMEN: No hepatosplenomegaly, normal bowel sounds, no guarding or rigidity. SKIN: No rashes CENTRAL NERVOUS SYSTEM: No focal deficits. EXTREMITIES: No cyanosis, clubbing or edema. - Labs CBC & Chem 7: 11/17/16 07:26 11/17/16 07:26 Labs: Abnormal Lab Results - Last 24 Hours (Table) 11/17/16 11/17/16 Range/Units 07:26 07:26 RBC 3.68 L (3.80-5.40) m/uL Carbon Dioxide 31 H (22-30) mmol/L Glucose 101 H (74-99) mg/dL Assessment and Plan (1) Abnormal EKG Status: Acute (2) Hypertension Status: Acute (3) History of mitral valve prolapse Status: Acute (4) Family history of ischemic heart disease Status: Acute (5) Smoking Status: Acute Plan: Patient remains stable for the last 2-3 days from cardiac standpoint. Echocardiogram showed normal LV function. She is being discharged home. Follow -up in the office and further cardiac workup to be done as an outpatient.
[2016-11-17] MEDS: METOPROLOL TARTRATE 50 MG TAB PO SCH (10:54)
[2016-11-17] MEDS: LISINOPRIL 20 MG TAB PO SCH (10:54)
[2016-11-17 11:47] VITALS: BP 120/68; TEMP 97.8
--- NOTE | 2016-11-17 13:08 | PN ---
DATE OF SERVICE: 11/15/2016 Ms. Wheeler is a 66-year-old female with a known history of hypertension and multiple medical problems who recently underwent sinonasal surgery for polypectomy at [facility] on 11/13/2016. Postoperatively the patient had EKG changes and was sent to the hospital. Patient was going to the hospital. Serial EKGs and troponins were negative. Troponins are trending down at this time. Initial troponin was slightly elevated. Otherwise Cardiology recommended no further work-up. Patient today morning became hypotension after pain medications and blood pressure medications. Patient still complains of dizziness and headache. The patient was seen by ENT and recommended CT angiogram of the head for possibility of any aneurysm, which was negative. Otherwise patient denies any fever, chills. The patient otherwise still feels very weak and unable to ambulate without support. REVIEW OF SYSTEMS: CONSTITUTIONAL: No fever. No chills. Patient does have generalized weakness. RESPIRATORY: No cough or sputum collection. CARDIOVASCULAR: No chest pain, short of breath. ABDOMEN: No nausea, vomiting or abdominal pain. GENITOURINARY: Neg. ENDOCRINE: Negative. NEUROLOGIC: Patient does have a headache and dizziness. PSYCHIATRIC: Anxious. All other fourteen point review of systems negative except as above. CURRENT MEDICATIONS: Reviewed. PHYSICAL EXAMINATION: A 66-year-old female lying in bed comfortably, awake, alert, oriented x3, appears to be in no apparent distress. VITALS: Blood pressure is 124/58, pulse 65, respirations 18, temperature afebrile. Pulse ox is 93% on room air. HEENT: Atraumatic, normocephalic. NECK: Supple. No JVD. SOCIAL SERVICES COUNSELOR: S1, S2 heard. No murmurs, no gallop. LUNGS: Bilateral air entry is present. No wheezing, no crackles. ABDOMEN: Soft, nontender, bowel sounds present. SOCIAL SERVICES COUNSELOR: Awake, alert, oriented x3 now. Patient does have nasal pack. No active bleeding at the time. LABORATORY DATA: WBC 138, potassium 4.4, chloride 101, bicarbonate 32, BUN 22, creatinine 0.8, calcium 9.2. IMPRESSION: 1. Mildly elevated troponin level trending down at this time, unlikely acute coronary syndrome. 2. Minimal T wave inversions in the EKG. 3. Acute status nasal and sinus polypectomy done on 11/13/2016. 4. Hypotensive today in the morning. 5. Headache and dizziness. 6. Hypertension. 7. Hyperlipidemia. 8. History of mitral prolapse. 9. History of migraine headache. DISCUSSION AND PLAN: A 66-year-old female admitted to the hospital with a possible EKG changes and the troponins are negative. Cardiology recommended no further work-up. The patient underwent a CT angiogram of the head to rule out aneurysm due to headache and dizziness, which is negative. Otherwise patient will be continued on current management and encourage ambulation and p.o. intake. PT, OT has been consulted and family is requesting to be transferred to rehab.
--- NOTE | 2016-11-17 13:28 | PN ---
DATE OF SERVICE: 11/16/2016 Interval history: Ms. Wheeler is a 66 -year-old female admitted to the hospital after she was found to have EKG T-wave inversions on the EKG after she had sinonasal surgery on 11/13/2016. Otherwise, serial EKGs and troponins are negative while in the hospital. Patient was seen by cardiology and recommended no further work-up. CT head showed no aneurysm. The patient says recurrent dizziness improved now. Otherwise, the patient feels generalized weak and the patient has generalized weakness and unable to ambulate without support. Which is most likely secondary to nasal packing obstructing her vision. Otherwise, no fever. No chills. No acute overnight issues. Family requesting her to be transferred to rehabilitation and PT/OT has been consulted. Otherwise, no acute overnight issues. REVIEW OF SYSTEMS: CONSTITUTIONAL: No fever, no chills. RESPIRATORY: No cough or sputum production. CARDIOVASCULAR: No chest pain or short of breath. ABDOMEN: No nausea or vomiting or abdominal pain. GENITOURINARY: Negative. ENDOCRINE: Negative. PSYCHIATRY: Negative. SKIN: Negative. All other 14 point review of systems negative except as above. CURRENT MEDICATIONS: Reviewed. PHYSICAL EXAMINATION: A 66 -year-old female lying in bed comfortably. Awake, alert, oriented, x3, appears to be in no apparent distress. VITALS: Blood pressure is 140/74, pulse is 68, respiratory rate 18, temperature afebrile, pulse ox 92% on room air. HEENT: Atraumatic, normocephalic. Neck is supple. No JVD. CVS: S1, S2 heard. No murmurs. No gallop. No rub. LUNGS: Bilateral air entry is present. No wheezing, no crackles. ABDOMEN: Soft, nontender. Bowel sounds present. CENTRAL NERVOUS SYSTEM: Awake, alert, and oriented x3. No focal neurological deficits. Cranial nerves grossly intact. EXTREMITIES: No edema. Pulses palpable bilaterally. No clubbing or cyanosis. PSYCHIATRY: Cooperative. Nonsuicidal. SKIN: No ulcer, rash or lesions. LABORATORY DATA: Reviewed. IMPRESSION: 1. ( ) on EKG nonsignificant ( ) cardiology has seen the patient. Slightly elevated troponin on admission, trending down at this time. 2. Status post nasal and sinus polypectomy done on 11/13/2016. 3. Hypertension, controlled now. 4. Hyperlipidemia. 5. Mitral valve prolapse history. 6. History of migraine headaches. DISCUSSION AND PLAN: 66 -year-old female admitted to the hospital with ( ) EKG changes and slightly elevated troponin. Cardiology recommended no further work-up. Otherwise, the patient ( ). Troponin is negative. Repeat troponins are negative. Patient has generalized weakness and continue the PT, OT and possible transfer to rehab. senior site manager has been consulted. Family is requesting her to be transferred to rehab. Further recommendations based on clinical course.
--- NOTE | 2016-12-03 15:28 | DS ---
DATE OF ADMISSION: 11/14/2016 DATE OF DISCHARGE: 11/17/2016 DISCHARGE DIAGNOSES: 1. Abnormal EKG with slightly elevated troponin on admission. Troponins are trending down at this time. A 2-D echo was done showed normal left ventricular function and Cardiology recommended outpatient followup. 2. Status post nasal and sinus polypectomy done on 11/13/2016. No active bleeding at this time. Seen by ENT. 3. Hypertension, controlled now. 4. Hyperlipidemia. 5. History of mitral valve prolapse. 6. Family history of coronary artery disease. 7. History of migraine headaches. HOSPITAL COURSE: Ms. Wheeler is a 66-year-old female who had a sinonasal surgery on 11/13/2016, was transferred to [facility] with abnormal EKG with TA inversion in the lateral leads. Patient had a cardiac work-up done including serial EKGs and troponins. Troponins slightly elevated but not in the acute coronary artery syndrome range. The patient was seen by Cardiology and 2-D echo was done, showed a normal ejection fraction and LV function. Otherwise, patient was monitored while in the hospital. No active chest pain, short of breath. Patient was seen ENT as well and nasal pack has been removed now. Otherwise, no active bleeding now. Her blood pressures is elevated and blood pressure medications have been adjusted at this time. Currently, patient is more stable and able to ambulate. No active complaints of chest pain or shortness of breath. Patient is otherwise stable to be discharged home. Cardiology has cleared the patient as well. DISCHARGE PHYSICAL EXAMINATION: A 66-year-old female lying in the bed comfortably, awake, alert and oriented x3. Patient in no apparent distress. VITALS: Blood pressure is 120/68, pulse is 61, respirations 16, temperature afebrile, pulse ox 98% on room air. Laboratory data reviewed. Discharge physical examination done. Discharge medications include: 1. Xanax 0.5 mg p.o. t.i.d. p.r.n. for anxiety. 2. ProAir 2 puffs inhalation q.4 hourly p.r.n. for short of breath. 3. Lexapro 20 mg p.o. daily. 4. Monopril 20 mg p.o. b.i.d. 5. [place] 10 one tablet p.o. q.4 hourly p.r.n. for pain. 6. Hydrochlorothiazide 20 mg p.o. b.i.d. 7. Metoprolol 50 mg p.o. b.i.d. 8. Singulair 10 mg p.o. at bedtime. 9. Zocor 20 mg p.o. at bedtime. 10. Zolpidem 12.5 mg p.o. at bedtime p.r.n. for sleep. 11. Amlodipine 5 mg p.o. daily. Patient will be discharged home in stable condition. Activity as tolerated. Heart-healthy diet. Follow with Dr. Tapia in one week. Follow with Dr. Magdaleno and follow up with Dr. Shlomo Blanton in 3 days.
== END 2016-11-17 13:39 | disposition home or self-care (01) | DRG 305 ==
LOC: EC 14:36 → 3OBS 18:36 → OBSVTOIN 11-14 11:40
PROVIDERS: ADMIT Hospitalist; ATTEND Hospitalist
DX: I10 Essential (primary) hypertension (principal); I95.9 Hypotension, unspecified; E78.5 Hyperlipidemia, unspecified; I34.1 Nonrheumatic mitral (valve) prolapse; R04.0 Epistaxis; G43.909 Migraine, unspecified, not intractable, without status migrainosus; R74.8 Abnormal levels of other serum enzymes; R94.31 Abnormal electrocardiogram [ECG] [EKG]; R51 Headache; Z87.891 Personal history of nicotine dependence; Z79.899 Other long term (current) drug therapy; Z88.8 Allergy status to other drugs, medicaments and biological substances
CPT/HCPCS: 36415; 70496; 71010; 80048; 80053; 80061; 82550; 82553; 83735; 84484; 85025; 85610; 85730; 93005; 93306; 94760; 96374; 96375; 96376; 99291

== ENCOUNTER 2016-12-29 07:18 | Day surgery (SDC) | payer MEDICARE, BC ==
[2016-12-25 15:56] VITALS: BMI 27.3
[~2016-12-29 07:18] MED LIST: SODIUM CHLORIDE 0.9% 1,000 ML in EMPTY BAG 1 BAG IV ONE
[2016-12-29] MEDS ORDERED: ALPRAZolam 0.25 MG TAB PO ONE (07:40)
[2016-12-29] MEDS ORDERED: ALPRAZolam 0.25 MG TAB ONE (07:40)
[2016-12-29] MEDS ORDERED: SODIUM CHLORIDE 0.9% 1,000 ML IV ONE (07:45)
[2016-12-29 08:03] LABS: Basophils % (A) 1 %; CH 30.5; CHCM 32.5; Eosinophils # (A) 0.2 k/uL (0-0.7); Eosinophils % (A) 3 %; HCT 39.2 % (34.0-46.0); HDW 2.47; HGB 12.6 gm/dL (11.4-16.0); Luc # (Auto) 0.21; Luc % (Auto) 3; Lymphocytes % (A) 30 %; MCH 30.3 pg (25.0-35.0); MCHC 32.2 g/dL (31.0-37.0); MCV 94.2 fL (80.0-100.0); Mean Platelet Volume 6.8; Monocytes # (A) 0.6 k/uL (0-1.0); Monocytes % (A) 9 %; Neutrophils # (A) 3.7 k/uL (1.3-7.7); Neutrophils % (A) 55 %; RBC 4.16 m/uL (3.80-5.40); RDW 12.2 % (11.5-15.5); WBC 6.8 k/uL (3.8-10.6); WBC (Perox) 7.64
[2016-12-29] MEDS ORDERED: IV FLUID CONTINUATION 1,000 ML IV ONE (08:04)
[2016-12-29] MEDS ORDERED: fentaNYL (PF) 50 MCG/ML 2 ML AMP ONE (08:13)
[2016-12-29] MEDS ORDERED: MIDAZOLAM 2 MG/2 ML VIAL ONE (08:13)
[2016-12-29 08:23] LABS: Anion Gap 8 mmol/L; Calcium 9.5 mg/dL (8.4-10.2); Carbon Dioxide 31 mmol/L (22-30); Chloride 102 mmol/L (98-107); Glucose 89 mg/dL (74-99); Non-African American GFR(MDRD) >60 (>60 ml/min/1.73 sqM); Sodium 141 mmol/L (137-145)
[2016-12-29 08:29] LABS: Blood Urea Nitrogen 20 mg/dL (7-17); Potassium 4.2 mmol/L (3.5-5.1)
[2016-12-29] MEDS ORDERED: MIDAZOLAM 2 MG/2 ML VIAL IV ONE (08:30)
[2016-12-29] MEDS ORDERED: fentaNYL (PF) 50 MCG/ML 2 ML AMP IV ONE (08:31)
[2016-12-29] MEDS ORDERED: LIDOCAINE 2% INJ 20 MG/ML SQ ONE (08:33)
[2016-12-29] MEDS ORDERED: LABETALOL SYRINGE 5 MG/ML ONE (08:36)
[2016-12-29] MEDS ORDERED: LABETALOL 5 MG/ML VIAL MDV IV ONE (08:39)
[2016-12-29] MEDS ORDERED: NITROGLYCERIN OINT 1 INCH/GM PACKET TOPICAL ONE ×2 (08:45→08:48)
[2016-12-29] MEDS ORDERED: IOHEXOL 350 MG/ML 100 ML BOTTLE INJ ONE (08:49)
[2016-12-29 08:50] VITALS: RESP 18
[2016-12-29] MEDS ORDERED: amLODIPine 5 MG TAB ONE (08:52)
[2016-12-29] MEDS ORDERED: RX INFO: IV CONTRAST WAS GIVEN 1 EACH MISC MISCELLANE PRN (08:56)
[2016-12-29] MEDS ORDERED: SODIUM CHLORIDE 0.9% 1,000 ML IV SCH (09:00)
--- NOTE | 2016-12-29 09:03 | P.PCN ---
Date of Procedure: 12/29/16 Preoperative Diagnosis: History of non-STEMI, hypertension Postoperative Diagnosis: Mild diffuse coronary artery disease Procedure(s) Performed: Left heart catheterization without left ventriculography Description of Procedure: HISTORY: This is a 66-year-old female who recently had nasal surgery. Following that patient developed EKG changes and positive troponins consistent with non-ST elevation UT. Patient is advised to have cardiac catheterization to rule out underlying ischemic heart disease. CONSENT:I have discussed the risks, benefits and alternative therapies for the above-mentioned procedure and for both sedation/analgesia as well as necessary blood product administration, if indicated, as they pertain to this patient. The patient has indicated understanding and acceptance of the risks and procedures discussed. PROCEDURE: Patient was brought to the lab in a fasting state. Patient was given some IV sedation. The right groin is infiltrated with lidocaine and right femoral artery was entered using Seldinger technique. A 6-Mexican catheter was left in place and selective coronary arteriography was performed. Patient tolerated the procedure well. Femoral angiogram was performed and Manual compression was applied for hemostasis. No immediate complications were noted and patient was transferred to [facility] in a stable condition HEMODYNAMICS: Aortic pressure is about 200/95. Left greater end-diastolic pressure is 20-25 SELECTIVE CORONARY ARTERIOGRAPHY: LEFT MAIN: Normal length with the diffuse calcification without any stenosis. THE LEFT ANTERIOR DESCENDING CORONARY ARTERY: Fair caliber vessel with mild diffuse calcification without any critical lesions. Use ice to small septal and 2 diagonal branches. THE LEFT CIRCUMFLEX AND IS CORONARY ARTERY: This is a fair caliber vessel giving rise to good-sized OM branch. Dominant in nature. Free of any significant focal lesions. THE RIGHT CORONARY ARTERY: This is a fair caliber vessel and probably codominant. It mild diffuse disease in the midportion. No Sigmund focal lesions are noted. LEFT VENTRICULOGRAPHY: Not performed FINAL IMPRESSION: #1. Mild diffuse coronary artery disease #2 hypertensive coronary vascular disease and #3 peripheral vascular disease PLAN: Maximum medical therapy and risk factor modification PROGNOSIS: Fair
[2016-12-29] MEDS ORDERED: METOPROLOL TARTRATE 50 MG TAB PO STA (10:48)
[2016-12-29] MEDS ORDERED: HYDROCHLOROTHIAZIDE 25 MG TAB PO SCH (11:00)
[2016-12-29 14:15] VITALS: PULSE 68
[2016-12-29 14:41] VITALS: BP 98/54; TEMP 98
== END 2016-12-29 14:46 | disposition home or self-care (01) ==
LOC: CATHCVL 07:18
PROVIDERS: ATTEND Internal Medicine Cardiovascular Disease
DX: I25.10 Atherosclerotic heart disease of native coronary artery without angina pectoris (principal); I11.9 Hypertensive heart disease without heart failure; I73.9 Peripheral vascular disease, unspecified; I25.2 Old myocardial infarction; E78.00 Pure hypercholesterolemia, unspecified; Z82.49 Family history of ischemic heart disease and other diseases of the circulatory system; Z79.899 Other long term (current) drug therapy; Z88.8 Allergy status to other drugs, medicaments and biological substances; Z87.891 Personal history of nicotine dependence
CPT/HCPCS: 93458; 80048; 85025; 99152; C1894; C1769; J2001; J2250; Q9967; J3010